=== PATIENT | female | born 1955 | race Caucasian/White ===

== ENCOUNTER 2016-07-28 17:37 | Emergency (ER) | payer OTHER ==
--- NOTE | ~2016-07-28 | CT71 ---
[facility] A Service of [facility] RADIOLOGY TEXT RESULTS PATIENT: AMBER BOB LOCATION: [facility] : 57 UNIT #: [id number] AGE: [address]: Carl Delaney MD SEX: F ORDER DR: [id number] [facility] [address] [place], [place] [address] [id number] E MR#: [id number] Acc #: [id number] NAME: AMBER BOB : 1955 SEX: F STUDY DATE/TIME: 07/28/2016 16:29 UNIT: [facility] ROOM: STUDY DESCRIPTION: CT Head Wo Contrast Attending Physician: Carl Delaney M.D. Referring Physician: Primary Care Physician No Ordering Physician: Carl Delaney M.D. Primary Care Physician: Primary Care Physician No MEDICAL IMAGING REPORT This report is preliminary unless electronic signature is present EXAM Head CT without HISTORY Hypertension, headache, weakness this morning. History of cancer not otherwise specified. Site of weakness is not indicated. COMMENT Routine noncontrast head CT is reviewed. This CT exam was performed with one or more of the following radiation dose reduction techniques: automatic exposure control, adjustment of mA and/or kV according to patient size, and iterative reconstruction. COMPARISON 10/09/2010 FINDINGS There is no displaced calvarial fracture. Visualized mastoid air cells are clear and the visualized paranasal sinuses are clear. There is no evidence for acute intracranial hemorrhage or extraaxial fluid collection. The ventricles are normal in size and configuration. Minor periventricular white matter low-attenuation is nonspecific but likely due to small vessel disease in age group. If there is clinical concern for intracranial metastatic disease, followup imaging would be recommended preferably with an MRI with and without contrast if the patient is a candidate. Again I do not have any additional history with respect to the patient's cancer diagnosis. Nothing to suggest an acute cortical infarct. If this is of concern, followup imaging recommended preferably with MRI of the brain if candidate. No intracranial mass effect. IMPRESSION 1. Minor probable sequelae of small vessel disease. [facility] A Service of [facility] RADIOLOGY TEXT RESULTS PATIENT: AMBER BOB LOCATION: [facility] : 57 UNIT #: [id number] AGE: [address]: Carl Delaney MD SEX: F ORDER DR: 2. If there is clinical concern for acute CVA followup imaging would be recommended preferably with MRI. If there is concern for metastatic disease, followup imaging would be recommended preferably with MRI with and without contrast. Dictated by... Serene Ndiaye M.D. THIS IS AN ELECTRONICALLY VERIFIED REPORT Serene Ndiaye M.D. at 07/29/2016 10:08 AM KURTIS/to TD: 07/28/2016 22:16 JOB #: [id number] MEDICAL IMAGING REPORT Page 1 of 1 COPY
--- NOTE | ~2016-07-28 | CR72 ---
[facility] A Service of [facility] & [facility] RADIOLOGY TEXT RESULTS PATIENT: AMBER BOB LOCATION: [facility] : 57 UNIT #: [id number] AGE: [address]: Carl Delaney MD SEX: F ORDER DR: [id number] [facility] [address] [place], [place] [address] [id number] E MR#: [id number] Acc #: [id number] NAME: AMEBR BOB : 1955 SEX: F STUDY DATE/TIME: 07/28/2016 18:24 UNIT: [facility] ROOM: STUDY DESCRIPTION: CR Chest Single View Portable Attending Physician: Carl Delaney M.D. Referring Physician: Primary Care Physician No Ordering Physician: Carl Delaney M.D. Primary Care Physician: Primary Care Physician No MEDICAL IMAGING REPORT This report is preliminary unless electronic signature is present EXAM AP portable chest, 07/28/2016 COMPARISON 10/01/2015 HISTORY SUPPLIED Hypertension, shortness of breath, chest pressure and headache beginning today. An AP view is obtained. Cardiac size is enlarged, unchanged. Vascular pattern is normal and the lungs appear clear. CONCLUSION Stable cardiomegaly. No active disease. Dictated by... Darren Martinez M.D. THIS IS AN ELECTRONICALLY VERIFIED REPORT Darren Martinez M.D. at 07/29/2016 10:35 AM GLENNY/yury TD: 07/29/2016 01:46 JOB #: [id number] MEDICAL IMAGING REPORT Page 1 of 1 COPY
--- NOTE | ~2016-07-28 | EKG ---
PATIENT: AMBER BOB UNIT #: [id number] Ventricular Rate: 113 BPM Atrial Rate: 113 BPM P-R Interval: 176 ms QRS Duration: 86 ms Q-T Interval: 328 ms QTC Calculation(Bezet): 449 ms P Gwynn: 47 degrees Calculated R Gwynn: -19 degrees Calculated T Gwynn: 10 degrees Diagnosis Line: Sinus tachycardia Diagnosis Line: Voltage criteria for left ventricular hypertrophy Diagnosis Line: Abnormal ECG Diagnosis Line: When compared with ECG of 13-DEC-2012 10:51, Diagnosis Line: ST no longer depressed in Anterior leads Diagnosis Line: Confirmed by NELL POPE MD ([id number]) on 07/30/2016 Diagnosis Line: 9:31:09 AM INTERPRETING MD: NIKO STAFFORD
[2016-07-28 16:35] LABS: BASOPHIL% 0.2 % (0-2.5); DIFF IND NO; EOSINOPHIL% 0.2 % (0.0-7.0); HEMATOCRIT 47.4 % (35.0-45.0); HEMOGLOBIN 15.7 gm/dL (12.0-16.0); LYMPHOCYTE# 2.5 X10e3 (1.0-3.5); LYMPHOCYTE% 22.5 % (17.0-45.0); MEAN CELL VOLUME 84.3 FL (83-96); MEAN CORPUSCULAR HGB CONC 33.2 g/dL (30-36); MEAN PLATELET VOLUME 8.2 FL (6.5-11.5); MONOCYTE# 0.6 X10e3 (0-1.0); MONOCYTE% 5.6 % (3.0-12.0); NEUTROPHIL% 71.5 % (40-75); PLATELET COUNT 281 X10e3 (140-420); RED BLOOD COUNT 5.63 X10e (3.90-5.30); RED CELL DISTRIBUTION WIDTH 13.3 % (11.0-15.5); WHITE BLOOD COUNT 11.1 X10e3 (4.0-10.5)
[2016-07-28 16:35] LABS: POC - CKMB 2.7 ng/mL (0.0-7.9); POC - TROPONIN <0.05 ng/mL (<=0.05)
[2016-07-28 16:57] LABS: PROTHROMBIN TIME (PATIENT) 10.4 SECONDS (9.6-11.5)
[2016-07-28 17:07] LABS: ALBUMIN SERUM 4.3 g/dL (3.5-5.0); ALKALINE PHOSPHATASE 100 U/L (32-92); ALT (SGPT) 48 U/L (10-40); AST (SGOT) 43 U/L (10-42); BILIRUBIN, DIRECT 0.1 mg/dL (0.0-0.2); BILIRUBIN,INDIRECT 0.1 mg/dL (0.0-0.9); BILIRUBIN,TOTAL 0.2 mg/dL (0.2-2.0); BLOOD UREA NITROGEN 14 mg/dL (9-23); BUN/CREATININE RATIO 23.33; CALCIUM SERUM 9.6 mg/dL (8.4-10.2); CARBON DIOXIDE 25 mmol/L (22-31); CHLORIDE 101 mmol/L (100-111); CREATININE SERUM 0.6 mg/dL (0.6-1.4); GLOM FILT RATE Estimated ABOVE60 mL/min (>60); GLUCOSE FASTING 116 mg/dL (70-110); POTASSIUM 3.1 mmol/L (3.5-5.1); PROTEIN TOTAL SERUM 7.6 g/dL (6.0-8.3); SODIUM 137 mmol/L (135-145)
[~2016-07-28 17:37] MED LIST: BACTRIM DS TABL1 TA1 PO; DIFLUCAN PO; FIORICET 50-321 EACH PO; FIORICET1 TAB PO; FLEXERIL10 MG PO; IBUPROFEN800 MG PO; INDERAL20 MG PO; KEFLEX500 MG PO; LITHIUM CARBON300 M1 PO; LITHIUM CARBON600 MG PO; LITHIUM PO; NAPROSYN500 MG PO; NEURONTIN; NEURONTIN300 MG PO; NO MEDICATIONS; PROPRANOLOL PO; PROZAC PO; RELPAX40 MG PO; VOLTAREN75 MG PO; ZANAFLEX PO; ZANAFLEX4 M1 PO
[2016-07-28 18:24] LABS: POC - CKMB 2.7 ng/mL (0.0-7.9); POC - TROPONIN <0.05 ng/mL (<=0.05)
[2016-07-28 18:29] LABS: AMPHETAMINE POS (NEG); BARBITURATES NEG (NEG); BENZODIAZEPINES NEG (NEG); COCAINE NEG (NEG); MARIJUANA NEG (NEG); OPIATES POS (NEG); TRICYCLIC ANTIDEPRESSANTS NEG (NEG); U METHADONE NEG (NEG)
== END 2016-07-28 19:10 | disposition home or self-care (01) ==
LOC: CED 17:37
PROVIDERS: Emergency Medicine
DX: R51 Headache (principal); I10 Essential (primary) hypertension; F41.9 Anxiety disorder, unspecified; F19.10 Other psychoactive substance abuse, uncomplicated; Z87.891 Personal history of nicotine dependence
CPT/HCPCS: 36415; 70450; 71010; 80048; 80076; 80307; 82553; 84484; 85025; 85610; 85730; 93005; 96374; 96375; 96376; 99284; J1885